=== PATIENT | male | born 1990 | race Caucasian/White ===

== ENCOUNTER 2017-08-04 21:29 | Emergency (ER) | payer BC, OTHER ==
[2017-08-04 21:34] VITALS: RESP 16
--- NOTE | 2017-08-04 21:48 | EDPHY ---
H & P Stated Complaint: SOB and CP x24 hours, Hx of L pneumothorax x4 Time Seen by Provider: 08/04/17 21:47 HPI/ROS: HPI CHIEF COMPLAINT: Chest pain x2 days. HISTORY OF PRESENT ILLNESS: This patient very pleasant 26-year-old male he is otherwise healthy does not take any daily medications he presents emergency room left-sided chest discomfort x2 days. Patient has a history of pneumothorax x3. Also small. All left-sided mainly apical. Not requiring any chest tube. He typically has symptoms gets an x-ray and then goes home. He Presents to the emergency room this evening left-sided chest discomfort. Very mild. It has been present for 2 days. Patient reports to me that it is worse when he lays flat. Or lays left side. He states exact same feelings had with his previous pneumothorax. He denies any significant pleuritic pain. He describes the pain is more as a dull pain. Patient does endorse some mild shortness of breath. Past Medical History: Pneumothorax x3. Past Surgical History: No recent surgery. Social History: Denies daily use drugs alcohol tobacco. Family History: Noncontributory. ROS REVIEW OF SYSTEMS: A comprehensive 10 point review of systems is otherwise negative aside from elements mentioned in the history of present illness. Exam Constitutional appears well nontoxic, triage nursing summary reviewed, vital signs reviewed, awake/alert. Eyes normal conjunctivae and sclera, EOMI, PERRLA. HENT normal inspection, atraumatic, moist mucus membranes, no epistaxis, neck supple/ no meningismus, no raccoon eyes. Respiratory I do hear breath sounds bilaterally, slightly decreased in the left apical region, , normal breath sounds, no respiratory distress, no wheezing. Cardiovascular rate normal, regular rhythm, no murmur, no edema, distal pulses normal. Gastrointestinal soft, non-tender, no rebound, no guarding, normal bowel sounds, no distension, no pulsatile mass. Genitourinary no CVA tenderness. Musculoskeletal no midline vertebral tenderness, full range of motion, no calf swelling, no tenderness of extremities, no meningismus, good pulses, neurovascularly intact. Skin pink, warm, & dry, no rash, skin atraumatic. Neurologic awake, alert and oriented x 3, AAOx3, moves all 4 extremities equally, motor intact, sensory intact, CN II-XII intact, normal cerebellar, normal vision, normal speech. Psychiatric normal mood/affect. Heme/Lymph/Immune no lymphadenopathy. Differential Diagnosis: Includes but is not limited to in a particular order pneumothorax, tension pneumothorax, small apical pneumothorax, ACS, pericarditis , myocarditis, PE. Medical Decision Making: Plan for this patient IV establishment, blood draw, EKG, full calender wind up helper, chest x-ray two view to evaluate for pneumothorax. Re-evaluation: EKG interpretation by me on record in [employer] system. Impression time of EKG 2149, this is sinus rhythm rate of 70. Unremarkable EKG nonischemic. No ST elevation. No ST depression. No significant T-wave abnormalities. Intervals are appropriate. 2225: Patient's chest x-ray two view shows a apical pneumothorax rather small probably 10-15%. No midline shift. This is interpreted by myself. No evidence of tension physiology. Vital signs have been reviewed. Vital signs are stable. No hypoxia 97% room air saturation. He is in no distress. Most likely will not place a chest tube. However I have consult to Dr. Willi Ocampo for evaluation of this. This is this patient's 4th pneumothorax. 2300: Dr. Ocampo has seen evaluated the patient. Does not require chest tube. Will allowed to go home. He is not allowed to fly tomorrow. As he has a pneumothorax. We do encourage him to follow up with Dr. Schmitt who is previously seen on his previous pneumothorax. Additionally understands return precautions he understands return immediately to the emergency room if he develops shortness of breath worsening chest pain or any questions or concerns or worsening of condition. 2322: Patient eager to be discharged. Vital signs stable. Return precautions given. He understands. Source: Patient - Personal History Current Tetanus/Diphtheria Vaccine: Yes Tetanus Vaccine Date: 2012 - Medical/Surgical History Hx Asthma: No Hx Chronic Respiratory Disease: No Hx Diabetes: No Hx Cardiac Disease: No Hx Renal Disease: No Hx Cirrhosis: No Hx Alcoholism: No Hx HIV/AIDS: No Hx Splenectomy or Spleen Trauma: No Other PMH: PMH: pneumothorax - Social History Smoking Status: Never smoked Constitutional: Initial Vital Signs Temperature (C) 37 C 08/04/17 21:32 Heart Rate 63 08/04/17 21:32 Respiratory Rate 16 08/04/17 21:32 Blood Pressure 117/78 08/04/17 21:32 O2 Sat (%) 97 08/04/17 21:32 O2 Delivery Mode Room Air Allergies/Adverse Reactions: No Known Allergies Allergy (Unverified 07/13/16 10:16) Home Medications: Medication Instructions Recorded NK [No Known Home Meds] 07/13/16 Medical Decision Making - Diagnostics Imaging Results: Imaging Impressions Chest X-Ray 08/04/17 21:35 Impression: Small left pneumothorax. - Data Points Laboratory Results: Laboratory Results 08/04/17 22:23 08/04/17 22:23 08/04/17 08/04/17 22:23 22:23 WBC 8.98 10^3/uL 10^3/uL (3.80-9.50) RBC 5.30 10^6/uL 10^6/uL (4.40-6.38) Hgb 15.4 g/dL g/dL (13.7-17.5) Hct 44.5 % % (40.0-51.0) MCV 84.0 fL fL (81.5-99.8) MCH 29.1 pg pg (27.9-34.1) MCHC 34.6 g/dL g/dL (32.4-36.7) RDW 12.5 % % (11.5-15.2) Plt Count 268 10^3/uL 10^3/uL (150-400) MPV 9.6 fL fL (8.7-11.7) Neut % (Auto) 45.6 % % (39.3-74.2) Lymph % (Auto) 44.0 % % (15.0-45.0) [place] % (Auto) 8.2 % % (4.5-13.0) Eos % (Auto) 1.2 % % (0.6-7.6) Baso % (Auto) 0.8 % % (0.3-1.7) Nucleat RBC Rel Count 0.0 % % (0.0-0.2) Absolute Neuts (auto) 4.09 10^3/uL 10^3/uL (1.70-6.50) Absolute Lymphs (auto) 3.95 10^3/uL H 10^3/uL (1.00-3.00) Absolute Monos (auto) 0.74 10^3/uL 10^3/uL (0.30-0.80) Absolute Eos (auto) 0.11 10^3/uL 10^3/uL (0.03-0.40) Absolute Basos (auto) 0.07 10^3/uL 10^3/uL (0.02-0.10) Absolute Nucleated RBC 0.00 10^3/uL 10^3/uL (0-0.01) Immature Gran % 0.2 % % (0.0-1.1) Immature Gran # 0.02 10^3/uL 10^3/uL (0.00-0.10) Sodium 142 mEq/L mEq/L (134-144) Potassium 3.8 mEq/L mEq/L (3.5-5.2) Chloride 101 mEq/L mEq/L (97-110) Carbon Dioxide 29 mEq/l mEq/l (22-31) Anion Gap 12 mEq/L mEq/L (8-16) BUN 17 mg/dL mg/dL (7-23) Creatinine 1.2 mg/dL mg/dL (0.7-1.3) Estimated GFR > 60 Glucose 105 mg/dL H mg/dL (70-100) Calcium 10.1 mg/dL mg/dL (8.5-10.4) Troponin I < 0.012 ng/mL ng/mL (0.000-0.034) Medications Given: Discontinued Medications Sodium Chloride (Ns) 1,000 mls @ 0 mls/hr IV EDNOW ONE; Wide Open PRN Reason: Protocol Stop: 08/04/17 21:55 Last Admin: 08/04/17 22:19 Dose: 1,000 mls Departure - Departure Disposition: Home, Routine, Self-Care Clinical Impression: Pneumothorax Qualifiers: Pneumothorax type: spontaneous, primary Qualified Code(s): J93.11 - Primary spontaneous pneumothorax Condition: Good Instructions: Spontaneous Pneumothorax (ED) Additional Instructions: 1.Return immediately to the emergency room if he develops worsening chest discomfort or shortness of breath. 2. If you feel that you pneumothorax is getting bigger or you are having trouble breathing immediately return to the emergency room. 3. Do not fly. Referrals: [place],NO SPECIFIC [Other] - As per Instructions Willi Ocampo MD [Medical Doctor] - As per Instructions Geoff Schmitt MD [Medical Doctor] - As per Instructions
--- NOTE | 2017-08-04 21:52 | CPEKG ---
Heart Rate: 70 RR Interval: 857 P-R Interval: 196 QRSD Interval: 88 QT Interval: 392 QTC Interval: 423 P [place]: 64 QRS [place]: 82 T Wave [place]: 34 EKG Severity - NORMAL ECG - EKG Impression: SINUS RHYTHM Electronically Signed By: Nicole Chahal 04-Aug-2017 22:35:19
[2017-08-04] MEDS ORDERED: NS 1,000 ML IV ONE (21:54)
[2017-08-04 23:01] LABS: % IMMATURE GRANULYOCYTES 0.2 % (0.0-1.1); ABSOLUTE IMMATURE GRANULOCYTES 0.02 10^3/uL (0.00-0.10); ADD DIFF? NO; ADD MORPH? NO; ADD SCAN? NO; ATYPICAL LYMPHOCYTE FLAG 10 (0-99); FRAGMENT RBC FLAG 0 (0-99); HEMATOCRIT 44.5 % (40.0-51.0); HEMOGLOBIN 15.4 g/dL (13.7-17.5); LEFT SHIFT FLG 0 (0-99); LIPEMIA HEMOLYSIS FLAG 90 (0-99); MEAN CELL HEMOGLOBIN 29.1 pg (27.9-34.1); MEAN CELL HEMOGLOBIN CONCENTR. 34.6 g/dL (32.4-36.7); MEAN PLATELET VOLUME 9.6 fL (8.7-11.7); PLATELET CLUMPS FLAG 0 (0-99); PLATELET COUNT 268 10^3/uL (150-400); RED CELL DISTRIBUTION WIDTH 12.5 % (11.5-15.2)
[2017-08-04 23:07] LABS: ANION GAP 12 mEq/L (8-16); CALCIUM 10.1 mg/dL (8.5-10.4); CARBON DIOXIDE 29 mEq/l (22-31); CHLORIDE 101 mEq/L (97-110); CREATININE 1.2 mg/dL (0.7-1.3); GLOMERULAR FILTRATION RATE > 60; GLUCOSE 105 mg/dL (70-100); POTASSIUM 3.8 mEq/L (3.5-5.2); SODIUM 142 mEq/L (134-144)
[2017-08-04 23:19] LABS: TROPONIN I < 0.012 ng/mL (0.000-0.034)
--- NOTE | 2017-08-04 23:24 | GCON ---
[f rep st] CONSULTATION DATE OF CONSULTATION: 08/04/2017 CHIEF COMPLAINT: Chest pain. 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 Patient states that when he gets the carmen n, it is always a fairly consistent left-sided discomfort, which is worse with exertion and/or if he lies on his left side. It has persisted over the last 2 days, and it was consistent with his previou s pneumothorax type pain, so he presented here. Here in the emergency room, he is completely alert, oriented, has minimal chest pain. He is on room air, and otherwise feels well. PAST MEDICAL HISTORY: Pneumothorax, now times 4. PAST SURGICAL HISTORY: None. SOCIAL HISTORY: Grad student here at . Denies illicit drug use. FAMILY HISTORY: Noncontributory. REVIEW OF SYSTEMS: A 10-point review was performed. PHYSICAL EXAMINATION: VITAL SIGNS: Temperature is 37 even, blood pressure 117/78, heart rate is 63, and he is 97% on room air. CONSTITUTIONAL: He is in no distress. He is comfortable. EYES: His p upils are equal, round, and reactive to light and accommodation. He has anicteric sclerae. His extr aocular movements are intact. EARS, NOSE, MOUTH, AND THROAT: He has moist mucous membranes. His he aring is normal. His ears appear normal. He has no oral mucosal ulcers. CARDIOVASCULAR: He has a regular rate and rhythm without any murmurs. RESPIRATORY: He has no respiratory distress. No rales , no rhonchi. LUNGS: Clear to auscultation bilaterally. GI: He has normoactive bowel sounds. His abdomen is soft, nondistended, nontender. SKIN: Warm. Normal color. No rashes. MUSCULOSKELETAL: He has full muscle strength. No muscle tenderness. No range of motion issues. NEUROLOGIC: He is alert and oriented x3. Cranial nerves 2-12 are intact. PSYCH: He is interacting appropriately. H e is not anxious. LYMPHS, HEME, AND IMMUNOLOGIC: He has no cervical or supraclavicular lymphadenopa thy. MEDICAL DECISION MAKING: Chest x-ray was performed, 2 way, here. The images, which were personally reviewed, show a small left apical pneumothorax. No evidence of retention no fluid. ASSESSMENT AND PLAN: A 26-year-old male with recurrent pneumothorax on the left side. I had a long discussion with the patient. It sounds like he has met with a surgeon and a mushroom spawn maker in the pas t. I did tell him that at the minimum, he should probably get a CT scan to at least quantify how man y blebs he has in his lungs so that he can anticipate what to expect in the future. I told him that if he were my patient, I would recommend surgery, as he is likely going to continue to have issues th roughout his life, and if he anticipates to travel where, especially remotely, this could cause some significant concerns. I told to follow up with his surgeon within the next few days if it has not re solved. He asked if he could get on a flight to [place] tomorrow, and I said that probably was catherine ppropriate, but it appeared to me as though he was going to make that decision anyway. Plan will be to discharge him home from the emergency department with followup. /[id number]/MODL
[2017-08-04 23:30] VITALS: BP 126/74; PULSE 53; TEMP 98.2; O2SAT 96
--- NOTE | 2017-08-06 09:21 | CPEKG ---
Heart Rate: 73 RR Interval: 822 QRSD Interval: 154 QT Interval: 424 QTC Interval: 468 QRS [place]: -90 T Wave [place]: 77 EKG Severity - ABNORMAL ECG - EKG Impression: AFIB/FLUTTER AND VENTRICULAR-PACED RHYTHM Electronically Signed By: Humza Miramontes 06-Aug-2017 15:39:07
== END 2017-08-04 23:29 | disposition home or self-care (01) ==
DX: J93.11 Primary spontaneous pneumothorax (principal); E86.9 Volume depletion, unspecified

== ENCOUNTER 2017-08-29 10:36 | Inpatient (IN) | payer OTHER ==
[2017-08-29] MEDS ORDERED: LR 1,000 ML IV ONE (10:49)
[2017-08-29] MEDS ORDERED: LIDOCAINE 1% 2 ML INJ ID PRN (10:49)
[2017-08-29] MEDS ORDERED: BUPIVACAINE 0.5% 30 ML SDV ONE (11:02)
[2017-08-29] MEDS ORDERED: LIDOCAINE 1% 300 MG/30 ML SDV ONE (11:02)
[2017-08-29] MEDS ORDERED: MIDAZOLAM 2 MG/2 ML VIAL IVP ONE (11:28)
--- NOTE | 2017-08-29 11:28 | PDANEPAE ---
ANE History of Present Illness thoracoscopy ANE Past Medical History - Cardiovascular History Hx Hypertension: No Hx Arrhythmias: No Hx Chest Pain: No Hx Coronary Artery / Peripheral Vascular Disease: No Hx CHF / Valvular Disease: No Hx Palpitations: No - Pulmonary History Hx COPD: No Hx Asthma/Reactive Airway Disease: No Hx Recent Upper Respiratory Infection: No Hx Oxygen in Use at Home: No Hx Sleep Apnea: No Sleep Apnea Screening Result - Last Documented: Negative Pulmonary History Comment: 2016 FIRST SPONTANEOUS PNEUMOTHORAX LAST EPISODE. STILL FEELS A LITTLE BIT OF AIR WHEN CHANGES POSITION - Neurologic History Hx Cerebrovascular Accident: No Hx Seizures: No Hx Dementia: No - Endocrine History Hx Diabetes: No - Renal History Hx Renal Disorders: No - Liver History Hx Hepatic Disorders: No - Neurological & Psychiatric Hx Hx Neurological and Psychiatric Disorders: No - Cancer History Hx Cancer: No - Congenital Disorder History Hx Congenital Disorders: No - GI History Hx Gastrointestinal Disorders: No - Other Health History Other Health History: GETS LIGHT HEADED AND TENDENCY TOWARDS FAINTING - Chronic Pain History Chronic Pain: No - Surgical History Prior Surgeries: WISDOM TEETH ANE Review of Systems Review of Systems: - Exercise capacity METS (RN): 4 METS ANE Patient History - Allergies Allergies/Adverse Reactions: No Known Allergies Allergy (Unverified 07/13/16 10:16) - Home Medications Home Medications: Cholecalciferol Vit D3 [Vitamin D3 (*)] 1,000 units PO DAILY 08/20/17 [Last Taken 08/28/17] Ibuprofen [Motrin (*)] 200 mg PO DAILY PRN 08/20/17 [Last Taken 08/08/17] - NPO status NPO Since - Liquids (Date): 08/29/17 NPO Since - Liquids (Time): 08:30 NPO Since - Solids (Date): 08/28/17 NPO Since - Solids (Time): 18:30 - Anes Hx Anes Hx: no prior problems - Smoking Hx Smoking Status: Never smoked - Family Anes Hx Family Hx Anesthesia Complications: NEG ANE Labs/Vital Signs - Vital Signs Blood Pressure: 120/75 Heart Rate: 75 Respiratory Rate: 16 O2 Sat (%): 100 Height: 175.26 cm Weight: 70.307 kg ANE Physical Exam - Airway Mallampati Score: Class 2 - Pulmonary Pulmonary: no respiratory distress - Cardiovascular Cardiovascular: regular rate and rhythym - ASA Status ASA Status: II ANE Anesthesia Plan Anesthesia Plan: general endotracheal anesthesia
[2017-08-29] MEDS ORDERED: MIDAZOLAM 2 MG/2 ML VIAL ONE (11:29)
[2017-08-29] MEDS ORDERED: ROCURONIUM 50 MG/5 ML VIAL ONE ×2 (11:39→12:39)
[2017-08-29] MEDS ORDERED: KETOROLAC 30 MG/1 ML SDV ONE (11:39)
[2017-08-29] MEDS ORDERED: ONDANSETRON 4 MG/2 ML VIAL ONE (11:39)
--- NOTE | 2017-08-29 11:39 | PDHPUP ---
History & Physical Update H&P update statement: This history and physical update is based on an assessment of the patient which was completed after admission or registration (within 24 hours), but prior to the surgery/procedure.
[2017-08-29] MEDS ORDERED: DEXAMETHASONE 4 MG/ML VIAL ONE (11:40)
[2017-08-29] MEDS ORDERED: fentaNYL 100 MCG/2 ML INJ ONE ×2 (11:40→13:19)
[2017-08-29] MEDS ORDERED: PROPOFOL 200 MG/20 ML VIAL ONE (11:40)
[2017-08-29] MEDS ORDERED: LIDOCAINE 2% 5 ML SDV ONE (11:40)
[2017-08-29] MEDS ORDERED: ALBUTEROL 3 ML DEYVIAL IH PRN (12:12)
[2017-08-29] MEDS ORDERED: LR 500 ML IV PRN (12:12)
[2017-08-29] MEDS ORDERED: NALOXONE HCL 0.4 MG/ML INJ IVP PRN (12:12)
[2017-08-29] MEDS ORDERED: ONDANSETRON 4 MG/2 ML VIAL IVP PRN ×2 (12:12→13:28)
[2017-08-29] MEDS ORDERED: PROMETHAZINE HCL 25 MG/ML INJ IVP PRN (12:12)
[2017-08-29] MEDS ORDERED: GLYCOPYRROLATE 0.2 MG/1 ML VIAL ONE (12:27)
[2017-08-29] MEDS ORDERED: SUGAMMADEX SODIUM 200 MG/2 ML VIAL IVP ONE (12:27)
[2017-08-29] MEDS ORDERED: epHEDrine SULFATE 10 MG/ML SYR ONE (12:54)
--- NOTE | 2017-08-29 13:15 | POSTANESTH ---
Post Anesthetic Evaluation Cardiovascular Status: Normal, Stable Respiratory Status: Normal, Stable Level of Consciousness/Mental Status: Can Participate in Eval Pain Control: Adequate, Prn Tx Ordered Nausea/Vomiting Control: Adequate, Prn Tx Ordered Complications Possibly Related to Anesthesia: None Noted
[2017-08-29] MEDS ORDERED: HYDROmorphONE/DILAUDID 1 MG/ML INJ ONE (13:19)
[2017-08-29] MEDS: HYDROmorphONE/DILAUDID 1 MG/ML INJ IVP PRN ×2 (13:22→13:45)
[2017-08-29] MEDS: fentaNYL 100 MCG/2 ML INJ IVP PRN ×2 (13:22→13:45)
--- NOTE | 2017-08-29 13:24 | POSTOPPROG ---
Post Op Note Date of Operation: 08/29/17 Surgeon: [facility] Director: Scott Garcia Anesthesia: GET(General Endotracheal) Pre-op Diagnosis: primary spontaneous pneumothorax Post-op Diagnosis: same Procedure: VATS left upper lobe wedge resection, mechnicochemical pleurodecsis Findings: bleb disease apex Inf/Abcess present in the surg proc area at time of surgery?: No EBL: Minimal Specimen(s): left upper lung wedge
[2017-08-29] MEDS: KETOROLAC 15 MG/1 ML SDV IVP SCH (17:54)
[2017-08-29] MEDS ORDERED: ONDANSETRON DISINTEGRATING 4 MG TAB PO PRN (20:15)
[2017-08-29] MEDS: ACETAMINOPHEN 325 MG TAB PO PRN (22:20)
[2017-08-30] MEDS: KETOROLAC 15 MG/1 ML SDV IVP SCH ×5 (00:34→23:57)
[2017-08-30] MEDS: ACETAMINOPHEN 325 MG TAB PO PRN ×5 (02:48→23:01)
[2017-08-30] MEDS: oxyCODONE IR 5 MG TAB PO PRN ×5 (07:34→23:56)
--- NOTE | 2017-08-30 14:51 | SOAPPROG ---
SOAP Progress Note Assessment/Plan: Assessment/Plan: POD#1 s/p VATs RUSSEL wedge No air leak Chest tube 80 ml total in 24hr OOB Tolerating diet CXR improving ptx apical tiny CT to water seal Encourage IS, OOB Chest tube out with post pull CXR 12/16 am Anticipate d/c post cxr 08/30/17 14:49 Objective: Vital Signs Temp Pulse Resp BP Pulse Ox 37.0 C 75 16 107/59 L 92 08/30/17 11:17 08/30/17 11:17 08/30/17 11:17 08/30/17 11:17 08/30/17 11:17 08/29/17 08/30/17 08/31/17 05:59 05:59 05:59 Intake Total 1140 Output Total 78 725 Balance 1062 -725 ICD10 Worksheet Patient Problems: Problems Problem Status Onset Pneumothorax Acute - ICD10 Problem Qualifiers (1) Pneumothorax Qualifiers: Pneumothorax type: spontaneous, primary Qualified Code(s): J93.11 - Primary spontaneous pneumothorax
--- NOTE | 2017-08-30 16:46 | ASMTCMCOM ---
CM Note CM Note Notes: Spoke w/RN, anticipate pt will dc home indepedent when medically stable. Student at , CM available for any changes. Date Signed: 08/30/2017 04:46 PM Electronically Signed By:Elizabeth Venegas RN
--- NOTE | 2017-08-30 17:30 | SOAPPROG ---
SOAP Progress Note Assessment/Plan: Assessment:no problems. pain adeq controlled. cxr with small apical ptx. pleurovac dynamic without leak. min serosang drainage. doing well. water seal. repeat cxr in am. anticipate tube removal in am. Plan: 08/30/17 17:29 Objective: Vital Signs Temp Pulse Resp BP Pulse Ox 37.1 C 84 20 103/69 95 08/30/17 15:43 08/30/17 15:43 08/30/17 15:43 08/30/17 15:43 08/30/17 15:43 08/29/17 08/30/17 08/31/17 05:59 05:59 05:59 Intake Total 1140 Output Total 78 2325 Balance 1062 -2325 ICD10 Worksheet Patient Problems: Problems Problem Status Onset Pneumothorax Acute
[2017-08-31] MEDS: ACETAMINOPHEN 325 MG TAB PO PRN ×3 (03:02→11:45)
[2017-08-31 04:01] VITALS: PULSE 76
[2017-08-31] MEDS: oxyCODONE IR 5 MG TAB PO PRN ×2 (04:03→08:11)
[2017-08-31] MEDS: KETOROLAC 15 MG/1 ML SDV IVP SCH ×2 (05:58→11:46)
[2017-08-31 11:31] VITALS: BP 107/60; RESP 20; TEMP 98.8; O2SAT 93
--- NOTE | 2017-08-31 15:34 | ASDISCHSUM ---
Discharge Information Plan Status:Home with No Needs Medically Cleared to Leave:08/30/2017 Discharge Date:08/31/2017 01:53 PM CM D/C Disposition:Home, Routine, Self-Care ADT D/C Disposition:Home, Routine, Self-Care Projected Discharge Date:08/31/2017 01:53 PM Transportation at D/C:Family Discharge Delay Reason: Follow-Up Date:08/31/2017 01:53 PM Discharge Slot:2 - 12:01 pm - 18:00 pm Final Diagnosis:spontaneous pneumothorax Placement Information Patient Contact Information Contact Name:FRANKIE Relationship:Other Address: Work Phone: City: [facility] Phone: State/[employer] Code: Email: Financial Information Financial Class:HMO and PPO Plans Primary Plan Desc:[employer] Primary Plan Number:[id number] Secondary Plan Desc: Secondary Plan Number: Assessment Information [facility] CM Progress Note CM Note CM Note Notes: Spoke w/RN, anticipate pt will dc home indepedent when medically stable. Student at [employer] available for any changes. Date Signed: 08/30/2017 04:46 PM Electronically Signed By:Elizabeth Venegas RN Case Management Discharge Plan Note Case Management Discharge Discharge Order Complete? Answers: Yes Patient to Obtain Answers: Independently Medications Transportation Arranged Answers: Family/Friends Transport will Pick (Date 08/31/2017 12:00 AM & Time) EMILY Complete Answers: No Notes: N/A Case Management Transport Answers: No Notes: N/A Form Complete Faxed Final Orders Answers: No Notes: N/A Agency/Facility Transfer Answers: No Notes: N/A Report Printed & Faxed to Receiving Agency Family Notified Answers: No Notes: Pt to notify Discharge Comments Notes: Reviewed chart regarding discharge plan, pt's progress. Pt to discharge home independently today w/ no identified needs. Pt to follow up as directed. No IM signed, not applicable. CM avail for any further issues or concerns. Date Signed: 08/31/2017 01:23 PM Electronically Signed By:Chika Estrada RN Intervention Information
--- NOTE | 2017-09-03 17:53 | PDDCSUM ---
Discharge Summary Discharge Summary: Discharge summary on Fernando Burnham Date of admission: 08/29/2017 Date of discharge: 08/31/2017 Principal diagnosis: Primary spontaneous pneumothorax Primary procedure: Video-assisted left upper lobe wedge resection, pleurodesis Past medical history: None Past surgical history: None Allergies: None Medications at home: Cholecalciferol Vit D3 [Vitamin D3 (*)] 1,000 units PO DAILY 08/20/17 [Last Taken 08/28/17] Ibuprofen [Motrin (*)] 200 mg PO DAILY PRN 08/20/17 [Last Taken 08/08/17] Medications at discharge: Oxycodone Colace Home medications to restart Hospital course: This is a 26-year-old gentleman who presents with his 4th spontaneous pneumothorax and elevation and with exertion. After considerable workup the patient has elected for definitive treatment. He presents on the day of surgery under goes uncomplicated video-assisted thoracoscopic wedge resection of the left upper lobe and mechanical and chemical pleurodesis. The patient had chest tube placed which had no air leak after 24 hours. Minimal fluid output was noted after 48 hours. The chest tube was discontinued at although he did have some immediate drainage afterwards, post pull chest x-ray showed minimal pneumothorax. He had pain controlled with oral analgesics and was discharged to home in the care of his family. Postop instructions include wound care remove dressing after 48 hours after that time he may shower. Dry dressing afterwards. Call with any questions regarding his surgery such as pain not controlled by medication, difficulty breathing, drainage from chest tube site or signs of infection such as fever or redness around wounds. All questions were addressed prior to patient leaving. Verbalization of understanding prior to discharge.
--- NOTE | 2017-09-04 01:49 | GOP ---
[f rep st] OPERATIVE REPORT DATE OF OPERATION: 08/29/2017 SURGEON: Geoff Schmitt MD JAR CAPPER: Scott Garcia MD. ANESTHESIA: General endotracheal double-lumen tube was used. ANESTHESIOLOGIST: Rod Gardner MD. PREOPERATIVE DIAGNOSIS: This is a 26-year-old gentleman who presents with a spontaneous pneumothorax . POSTOPERATIVE DIAGNOSIS: This is a 26-year-old gentleman who presents with a spontaneous pneumothora x. PROCEDURE PERFORMED: Video-assisted thoracoscopic surgery with left upper lobe wedge resection and m echanical and chemical pleurodesis. FINDINGS: SPECIMENS: Left upper lobe wedge. ESTIMATED BLOOD LOSS: Less than 10 mL. DESCRIPTION OF PROCEDURE: The patient was brought into the operating room. After induction of endot vivek anesthesia with double-lumen tube, he was placed in a right lateral decubitus position. Left chest was prepped and draped with chlorhexidine, the patient was secured appropriately, and the oper ation was then commenced. Time-out procedure was performed according to institutional standards. Lo miracle anesthetic was infused in skin and subcutaneous tissues, and 3 ports were then placed into the ch est. The 1st is an open technique for a 5 mm port in the anterior axillary line at the 5th intercost al space. The lung was down and working trocars were then placed in the 5th intercostal space aircraft design engineer ior axillary line as well as midaxillary line at approximately the 10th intercostal space. After exp miles the thoracic cavity, it was noted to have blebs on the upper part of the left upper lobe. The left lower lobe appeared intact. The decision was then made to perform a left upper lobe wedge rese ction. Stapler was introduced through a widened incision at the 10th intercostal space, and 3 serial firings of 45 mm stapler using a blue load were used to remove all the blebs at the apex of the lung . After insuring good approximation of the staple lines, a mechanical pleurodesis was done of the up per aspect of the lung circumferentially and then talc pleurodesis was then used to coat the anterior , middle and lower surfaces of the lung. Two bottles of spray talc were used. The chest tube was th en placed into the chest cavity using direct visualization through the 10th intercostal space. It wa s secured using 0 silk suture. The lung was then allowed to reinflate. This was seen visually, and the chest was then closed using 4-0 Monocryl for the 5 mm ports and glue, and the chest tube was then dressed, connected to an atrium. Minimal air leak was noted. The patient tolerated the procedure w ell. Needle, instrument, and sponge counts were verified to be correct. He was placed supine, extub ated, and taken to the recovery room in stable condition. Postop chest x-ray pending. COMPLICATIONS: There were no complications. DRAINS: Exit are 28-Amharic chest tube. /[id number]/MODL
== END 2017-08-31 13:53 | disposition home or self-care (01) | DRG 168 ==
LOC: F3E 10:36
PROVIDERS: ADMIT Surgery; ATTEND Surgery
PROC: 0BBG8ZX Excision of Left Upper Lung Lobe, Via Natural or Artificial Opening Endoscopic, Diagnostic (ICD-10-PCS; principal; 2017-08-29 11:45)
PROC: 3E0L4GC Introduction of Other Therapeutic Substance into Pleural Cavity, Percutaneous Endoscopic Approach (ICD-10-PCS; principal; 2017-08-29 11:45)
DX: J93.11 Primary spontaneous pneumothorax (principal)
CPT/HCPCS: J1100; J1170; J1885; J2250; J2405; J2704; J3010